=== PATIENT | male | born 1970 | race Caucasian/White ===

== ENCOUNTER 2016-06-23 07:30 | Inpatient (IN) | payer BC ==
[~2016-06-23] VITALS: Ht 177.8 cm; Wt 106.6 kg
[2016-08-04] MEDS ORDERED: SEVOFLURANE 15 MIN GAS INH ONE (08:30)
[2016-08-04] MEDS ORDERED: LIDOCAINE/EPI 1% 1:100000 20 ML VIAL INJ ONE (08:30)
[2016-08-04] MEDS ORDERED: MIDAZOLAM HCL 5 MG/5 ML VIAL IVP ONE (08:30)
[2016-08-04] MEDS ORDERED: CEFAZOLIN 2 GM IVPB PREMIX 50 ML IV ONE (08:30)
[2016-08-04] MEDS ORDERED: fentaNYL CITRATE/PF 100 MCG/2 ML AMP IVP ONE (08:30)
[2016-08-04] MEDS ORDERED: DEXAMETHASONE SOD PHOSPHATE 4 MG/ML VIAL IVP ONE (08:30)
[2016-08-04] MEDS ORDERED: LR 1,000 ML IV.SOLN IV ONE (08:30)
[2016-08-04] MEDS ORDERED: PROPOFOL 200MG/ 20ML VIAL (DIPRIVAN) IV ONE (08:30)
[2016-08-04] MEDS ORDERED: ONDANSETRON HCL 4 MG/2 ML VIAL IVP ONE (08:30)
[2016-08-04] MEDS ORDERED: NS IRRIG SOLN 1000 ML IR ONE (08:30)
[2016-08-04] MEDS ORDERED: THROMBIN (BOVINE) 5000 UNITS/ VIAL TP ONE (08:30)
[2016-08-04] MEDS ORDERED: METOPROLOL TARTRATE 5 MG/5 ML VIAL IVP ONE (08:30)
[2016-08-04] MEDS ORDERED: SUCCINYLCHOLINE CHLORIDE 20 MG/ML(QUELICIN) IVP ONE (08:30)
[2016-08-04] MEDS ORDERED: LR 1,000 ML IV SCH (08:50)
[2016-08-04] MEDS ORDERED: HYDROmorphone 2 MG/ML VIAL IVP PRN ×2 (09:00)
[2016-08-04] MEDS ORDERED: ONDANSETRON HCL 4 MG/2 ML VIAL IVP PRN ×2 (09:00→12:30)
[2016-08-04] MEDS ORDERED: MEPERIDINE HCL/PF 25 MG/ML DISP.SYRIN IVP PRN ×2 (09:00)
[2016-08-04] MEDS ORDERED: HYDROmorphone 1 MG INJ. 1 MG/ML AMPUL IVP PRN (09:00)
[2016-08-04] MEDS ORDERED: HYDROcodone/ACETAMIN 5-325 MG TAB (NORCO/ VICODIN) PO PRN (12:30)
[2016-08-04] MEDS ORDERED: ONDANSETRON HCL 4 MG/2 ML VIAL ONE (13:20)
[2016-08-04] MEDS ORDERED: NORMAL SALINE 5 ML DISP.SYRIN IVF SCH (14:00)
[2016-08-04 15:00] VITALS: BP_SYST 148
[2016-08-04 16:00] VITALS: BP_SYST 148
[2016-08-04] MEDS: DEXAMETHASONE SOD PHOSPHATE 4 MG/ML VIAL IVP SCH (17:07)
[2016-08-04 19:45] VITALS: BP_SYST 128
[2016-08-04] MEDS ORDERED: DIPHENHYDRAMINE HCL 25 MG CAPSULE PO ONE (22:30)
[2016-08-04] MEDS: NORMAL SALINE 5 ML DISP.SYRIN IVF SCH ×2 (23:02→23:04)
[2016-08-05] MEDS: DEXAMETHASONE SOD PHOSPHATE 4 MG/ML VIAL IVP SCH (00:08)
[2016-08-05 00:19] VITALS: BP_SYST 137
[2016-08-05 04:17] VITALS: BP_SYST 135
[2016-08-05 08:00] VITALS: BP_SYST 144
[2016-08-05] MEDS: NORMAL SALINE 5 ML DISP.SYRIN IVF SCH (08:49)
[2016-08-05 10:19] VITALS: BP_SYST 140
[2016-08-05 11:20] VITALS: BP_SYST 139
== END 2016-08-05 12:00 | disposition home or self-care (01) | DRG 134 ==
LOC: EDSTATUS 07:30 → SMU 08-04 07:18
PROVIDERS: ADMIT Otolaryngology Plastic Surgery within the Head & Neck; ATTEND Otolaryngology Plastic Surgery within the Head & Neck
PROC: 00BM0ZZ Excision of Facial Nerve, Open Approach (ICD-10-PCS; 2016-08-04)
PROC: 4A11X4G Monitoring of Peripheral Nervous Electrical Activity, Intraoperative, External Approach (ICD-10-PCS; 2016-08-04)
PROC: 0CB80ZZ Excision of Right Parotid Gland, Open Approach (ICD-10-PCS; principal; 2016-08-04 09:00)
DX: D11.0 Benign neoplasm of parotid gland (principal); I10 Essential (primary) hypertension; G47.33 Obstructive sleep apnea (adult) (pediatric); F32.9 Major depressive disorder, single episode, unspecified; E66.01 Morbid (severe) obesity due to excess calories; Z68.33 Body mass index [BMI] 33.0-33.9, adult; Z91.041 Radiographic dye allergy status
CPT/HCPCS: 87081; 88307; J0330; J0690; J1100; J2250; J2405; J2704; J3010; J3490; J7120; Q0163